=== PATIENT | female | born 1970 | race Caucasian/White ===

== ENCOUNTER 2023-04-17 20:18 | Emergency (ER) | payer OTHER ==
[~2023-04-17] VITALS: Ht 167.6 cm; Wt 62.6 kg
[2023-04-17] MEDS ORDERED: DICLOFENAC SODI75 MG PO (22:13)
== END 2023-04-17 22:22 | disposition home or self-care (01) ==
LOC: ER 20:18
DX: R10.2 Pelvic and perineal pain (principal)